=== PATIENT | male | born 1995 | race Asian ===

== ENCOUNTER 2017-06-08 02:16 | Emergency (ER) | payer SELFPAY ==
[2017-06-08 02:32] VITALS: TEMP 98.1; O2SAT 96
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
[2017-06-08 04:20] VITALS: BP 121/70; PULSE 72; RESP 16
== END 2017-06-08 04:42 | disposition home or self-care (01) ==
DX: S00.83XA Contusion of other part of head, initial encounter (principal); F10.129 Alcohol abuse with intoxication, unspecified; F17.200 Nicotine dependence, unspecified, uncomplicated; Y04.0XXA Assault by unarmed brawl or fight, initial encounter; Y99.8 Other external cause status; Y93.89 Activity, other specified